=== PATIENT | female | born 1995 | race Two or more races ===

== ENCOUNTER 2018-10-03 10:13 | Emergency (ER) | payer OTHER ==
[~2018-10-03] VITALS: Ht 157.5 cm; Wt 48.5 kg
== END 2018-10-03 15:24 | disposition home or self-care (01) ==
LOC: ER 10:13
DX: O20.0 Threatened abortion (principal)

== ENCOUNTER 2018-12-27 09:14 | Emergency (ER) | payer OTHER ==
[~2018-12-27] VITALS: Ht 160 cm; Wt 52.6 kg
[2018-12-27] MEDS ORDERED: KEFLEX500 MG PO (13:27)
== END 2018-12-27 13:53 | disposition home or self-care (01) ==
LOC: ER 09:14
DX: N39.0 Urinary tract infection, site not specified (principal); R10.2 Pelvic and perineal pain

== ENCOUNTER 2019-04-19 14:09 | Inpatient (IN) | payer OTHER ==
[~2019-04-19] VITALS: Ht 160 cm; Wt 61.7 kg
[~2019-04-19 14:09] MED LIST: KEFLEX500 MG PO
[2019-04-19] MEDS ORDERED: PRENATABS RX T1 EACH PO (22:49)
== END 2019-04-22 09:44 | disposition home or self-care (01) | DRG 807 ==
LOC: OBS/DEL 14:09 → LDR 19:39 → OBS/DEL 19:39 → OB/GYN 19:39
PROVIDERS: ADMIT Obstetrics & Gynecology
PROC: 10E0XZZ Delivery of Products of Conception, External Approach (ICD-10-PCS; principal; 2019-04-19)
PROC: 0KQM0ZZ Repair Perineum Muscle, Open Approach (ICD-10-PCS; 2019-04-19)
PROC: BY4FZZZ Ultrasonography of Third Trimester, Single Fetus (ICD-10-PCS; 2019-04-19)
PROC: 4A1HXCZ Monitoring of Products of Conception, Cardiac Rate, External Approach (ICD-10-PCS; 2019-04-19)
DX: O70.1 Second degree perineal laceration during delivery (principal); Z37.0 Single live birth; O26.853 Spotting complicating pregnancy, third trimester; Z3A.35 35 weeks gestation of pregnancy

== ENCOUNTER 2023-02-28 08:29 | Outpatient (CLI) | payer OTHER ==
[~2023-02-28 08:29] MED LIST changes: +PRENATABS RX T1 EACH PO
== END 2023-02-28 08:33 | disposition home or self-care (01) ==
LOC: PRENATAL 08:29
PROVIDERS: ATTEND Obstetrics & Gynecology Maternal & Fetal Medicine
DX: O26.849 Uterine size-date discrepancy, unspecified trimester (principal); Z36.0 Encounter for antenatal screening for chromosomal anomalies; Z14.8 Genetic carrier of other disease; O09.219 Supervision of pregnancy with history of pre-term labor, unspecified trimester; Z3A.15 15 weeks gestation of pregnancy

== ENCOUNTER 2023-04-04 08:02 | Outpatient (CLI) | payer OTHER | END 2023-04-04 08:06 | disposition home or self-care (01) | LOC: PRENATAL 08:02 | PROVIDERS: ATTEND Obstetrics & Gynecology Maternal & Fetal Medicine | DX: O35.3XX0 Maternal care for (suspected) damage to fetus from viral disease in mother, not applicable or unspecified (principal); O44.00 Complete placenta previa NOS or without hemorrhage, unspecified trimester; O09.219 Supervision of pregnancy with history of pre-term labor, unspecified trimester; Z3A.20 20 weeks gestation of pregnancy ==

== ENCOUNTER → 2023-06-27 08:32 | Outpatient (CLI) | payer OTHER | END | disposition home or self-care (01) | LOC: PRENATAL 08:32 | PROVIDERS: ATTEND Obstetrics & Gynecology Maternal & Fetal Medicine | DX: O26.849 Uterine size-date discrepancy, unspecified trimester (principal); O36.8199 Decreased fetal movements, unspecified trimester, other fetus; O09.219 Supervision of pregnancy with history of pre-term labor, unspecified trimester; Z3A.32 32 weeks gestation of pregnancy ==